=== PATIENT | male | born 1990 | race Caucasian/White ===

== ENCOUNTER 2016-04-06 17:28 | Inpatient (IN) | payer BC, OTHER ==
[~2016-04-06] VITALS: Ht 172.7 cm; Wt 95.0 kg
[2016-04-06] MEDS ORDERED: ALBUTEROL 0.083% NEBU SOLN 3 ML VIAL INH STA (17:53)
[2016-04-06] MEDS ORDERED: ALBUTEROL HFA 8 GM INHALER INH ONE (18:00)
--- NOTE | 2016-04-06 18:05 | EMERGENCY ROOM VISIT NOTE ---
History Report prepared by Dashawn: Shelia Villa Under the Supervision of: Dr. Jason Mazariegos M.D. First contact with patient: 17:35 Chief Complaint: MENTAL HEALTH EVALUATION Stated Complaint: DEPRESSION, SUICIDAL History of Present Illness The patient is a 26 year old male who presents to the Emergency Room with complaints of worsening suicidal ideations that were noticed DIVER PUMPER. Per the psych case management assistant, the patient's parents called police because they haven't heard from him in a couple days. The police went to the patient's house and it took him a while to answer the door, but he eventually let them in. Once the police were inside, they asked to see the patient's bedroom. They found a folded suicide note that was signed by the patient in his bedroom and then brought him into the ED. The psych case manger also reports that the patient took five Xanax last night in an attempt to not wake up. The patient did not want to talk about the note from his bedroom. He states that he has been depressed because school has been tough. The patient is studying international affairs at [employer]. He is working to get his Masters degree. The patient states that he has been experiencing a cough for the past 6 months that he has been unable to relieve with frequent uses of his inhaler. The patient states that he is eating and drinking normally. Source of History: patient, nursing staff (psych case management assistant) Onset: DIVER PUMPER Position: head Quality: other (suicidal ideations) Timing: worsening Associated Symptoms: + cough Review of Systems See HPI for pertinent positives & negatives. A total of 10 systems reviewed and were otherwise negative. Past Medical & Surgical Medical Problems: (1) No pertinent past medical history Family History No pertinent family history Social History Smoking Status: Never Smoker Marital Status: single Occupation Status: [employer] student Current/Historical Medications Scheduled Simvastatin (Zocor), 20 MG PO QPM Scheduled PRN Alprazolam (Xanax), 0.5 MG PO Q6H PRN for PRN Allergies Coded Allergies: Penicillins (Unverified Allergy, Unknown, DIARRHEA, 04/06/16) Physical Exam Vital Signs Date Time Temp Pulse Resp B/P Pulse Ox O2 Delivery O2 Flow Rate FiO2 04/06/16 20:50 74 20 124/70 98 04/06/16 17:30 36.5 72 133/78 96 Room Air Physical Exam GENERAL: Patient is a healthy-appearing well-nourished male HEAD: Normocephalic atraumatic EYES: Ocular movements intact pupils equal and react to light OROPHARYNX mucous membranes are moist no exudates present no erythema or edema present NECK: Supple no nuchal rigidity CHEST: Good equal expansion LUNGS: Clear and equal to auscultation CARDIAC: Normal S1 and S2 ABDOMEN: Soft nontender no guarding BACK: No CVA tenderness EXTREMITIES: Four superficial lacerations on left wrist that don't need suturing. Normal muscle strength in all groups no clubbing cyanosis or edema NEURO: Patient is following commands is answering questions appropriately. Alert and oriented x3 Cranial Nerves 2-12 grossly intact PSYCH: Denies being suicidal. Evasive with questioning. Medical Decision & Procedures ER Provider Diagnostic Interpretation: X-ray results as stated below per interpretation by me and the radiologist: CHEST ONE VIEW PORTABLE IMPRESSION: Poor inspiratory volumes with secondary crowding of the basilar lung markings. No acute infiltrate is appreciated. Electronically signed by: Leonid Grant M.D. 04/06/2016 6:07 PM Dictated Date/Time: 04/06/2016 6:07 PM Laboratory Results 04/06/16 18:00 Red Blood Count 5.93, Mean Corpuscular Volume 85.7, Mean Corpuscular Hemoglobin 31.2, Mean Corpuscular Hemoglobin Concent 36.4, Mean Platelet Volume 9.7, Neutrophils (%) (Auto) 65.4, Lymphocytes (%) (Auto) 23.4, Monocytes (%) (Auto) 9.3, Eosinophils (%) (Auto) 1.3, Basophils (%) (Auto) 0.4, Neutrophils # (Auto) 3.53, Lymphocytes # (Auto) 1.26, Monocytes # (Auto) 0.50, Eosinophils # (Auto) 0.07, Basophils # (Auto) 0.02 04/06/16 18:00 Test 04/06/16 17:50 04/06/16 17:58 04/06/16 18:00 Urine Color DK YELLOW Urine Appearance CLEAR (CLEAR) Urine pH 6.0 (4.5-7.5) Urine Specific Braxton 1.020 (1.000-1.030) Urine Protein NEG (NEG) Urine Glucose (UA) NEG (NEG) Urine Ketones NEG (NEG) Urine Occult Blood NEG (NEG) Urine Nitrite NEG (NEG) Urine Bilirubin NEG (NEG) Urine Urobilinogen NEG (NEG) Urine Leukocyte Esterase NEG (NEG) Urine Opiates Screen NEG (NEG) Urine Methadone, Qualitative NEG (NEG) Urine Barbiturates NEG (NEG) Urine Phencyclidine (PCP) Level NEG (NEG) Ur Amphetamine/Methamphetamine NEG (NEG) MDMA (Ecstasy) Screen NEG (NEG) Urine Benzodiazepines Screen POS (NEG) Urine Cocaine Metabolite NEG (NEG) Urine Marijuana (THC) NEG (NEG) Bedside Glucose 85 mg/dl (70-99) White Blood Count 5.39 K/uL (4.8-10.8) Red Blood Count 5.93 M/uL (4.7-6.1) Hemoglobin 18.5 g/dL (14.0-18.0) Hematocrit 50.8 % (42-52) Mean Corpuscular Volume 85.7 fL (80-100) Mean Corpuscular Hemoglobin 31.2 pg (25-34) Mean Corpuscular Hemoglobin Concent 36.4 g/dl (32-36) Platelet Count 277 K/uL (130-400) Mean Platelet Volume 9.7 fL (7.4-10.4) Neutrophils (%) (Auto) 65.4 % Lymphocytes (%) (Auto) 23.4 % Monocytes (%) (Auto) 9.3 % Eosinophils (%) (Auto) 1.3 % Basophils (%) (Auto) 0.4 % Neutrophils # (Auto) 3.53 K/uL (1.4-6.5) Lymphocytes # (Auto) 1.26 K/uL (1.2-3.4) Monocytes # (Auto) 0.50 K/uL (0.11-0.59) Eosinophils # (Auto) 0.07 K/uL (0-0.5) Basophils # (Auto) 0.02 K/uL (0-0.2) RDW Standard Deviation 38.8 fL (36.4-46.3) RDW Coefficient of Variation 12.4 % (11.5-14.5) Immature Granulocyte % (Auto) 0.2 % Immature Granulocyte # (Auto) 0.01 K/uL (0.00-0.02) Anion Gap 12.0 mmol/L (3-11) Est Creatinine Clear Calc Drug Dose 125.1 ml/min Estimated GFR () 119.9 Estimated GFR (Non- 103.4 BUN/Creatinine Ratio 11.1 (10-20) Calcium Level 9.7 mg/dl (8.5-10.1) Total Bilirubin 2.0 mg/dl (0.2-1) Direct Bilirubin 0.3 mg/dl (0-0.2) Aspartate Amino Transf (AST/SGOT) 22 U/L (15-37) Alanine Aminotransferase (ALT/SGPT) 48 U/L (12-78) Alkaline Phosphatase 79 U/L (45-117) Total Protein 9.1 gm/dl (6.4-8.2) Albumin 5.4 gm/dl (3.4-5.0) Globulin 3.7 gm/dl (2.5-4.0) Albumin/Globulin Ratio 1.5 (0.9-2) Thyroid Stimulating Hormone (TSH) 0.901 uIu/ml (0.300-4.500) Ethyl Alcohol mg/dL < 3.0 mg/dl (0-3) Labs reviewed by ED physician. Medications Administered Medications (Trade) Dose Ordered Sig/Devon Route Start Time Stop Time Status Last Admin Dose Admin Albuterol (Ventolin Hfa Inhaler) 2 puffs NOW ONCE INH 04/06/16 18:00 04/06/16 18:02 DC 04/06/16 18:11 2 PUFFS Albuterol Sulfate (Ventolin 0.083% 2.5MG/3ML Neb) 2.5 mg NOW STAT INH 04/06/16 17:53 04/06/16 18:01 DC 04/06/16 18:11 2.5 MG ED Course 1740: Past medical records reviewed. The patient was evaluated in room A8. A complete history and physical examination was performed. 1750: The psych case management assistant informed me that the patient's wrists were dripping blood when he walked out of the bathroom. 1752: I reassessed the patient. He had four superficial lacerations on his left wrist that did not require suturing. Ordered Albuterol Sulfate 2.5 mg INH 1800: Ordered Albuterol 2 puffs INH 1840: I informed the psych case management assistant that the patient is medically clear at this time. 1917: The psych case management assistant informed me that [address] [place] [address] is going to come down and evaluate the patient. 2035: [address] [place] [address] has accepted the patient. He will go there for further management. Medical Decision Differential diagnosis: Etiologies such as mood disorder, infection, hypoglycemia, electrolyte abnormalities, cardiac sources, intracerebral event, toxicologic, neurologic, as well as others were entertained. This is a 26-year-old male who presents emergency department after running a suicidal note and in attempt to overdose on his medication. Upon arrival to the emergency department the patient does admit to doing this. He was medically cleared by me. I did discuss the case with 3 S. who agreed to admit the patient. Patient willingly signed a 201. Impression Primary Impression: Suicidal ideation Scribe Attestation The scribe's documentation has been prepared under my direction and personally reviewed by me in its entirety. I confirm that the note above accurately reflects all work, treatment, procedures, and medical decision making performed by me. Departure Information Dispostion [facility] ([address] [place] [address]) Patient Instructions [facility]
--- NOTE | 2016-04-06 18:09 | DIAGNOSTIC IMAGING REPORT ---
CHEST ONE VIEW PORTABLE CLINICAL HISTORY: Pt c/o SOB dyspnea COMPARISON STUDY: No previous studies for comparison. FINDINGS: Poor inspiratory volumes. Crowding of the basal lung markings. No focal infiltrate. IMPRESSION: Poor inspiratory volumes with secondary crowding of the basilar lung markings. No acute infiltrate is appreciated. Electronically signed by: Leonid Grant M.D. 04/06/2016 6:07 PM Dictated Date/Time: 04/06/2016 6:07 PM
[2016-04-06 18:17] LABS: BASO % 0.4 %; BASO ABS # 0.02 K/uL (0-0.2); COMPLETE YES; EOS % 1.3 %; HEMATOCRIT 50.8 % (42-52); IG% 0.2 %; LYMPH % 23.4 %; LYMPH ABS # 1.26 K/uL (1.2-3.4); MEAN CELL VOLUME 85.7 fL (80-100); MEAN CORPUSCULAR HEMOGLOBIN 31.2 pg (25-34); MEAN CORPUSCULAR HGB CONC 36.4 g/dl (32-36); MEAN PLATELET VOLUME 9.7 fL (7.4-10.4); MONO % 9.3 %; NEUT % 65.4 %; PLATELET COUNT 277 K/uL (130-400); RED BLOOD COUNT 5.93 M/uL (4.7-6.1); WHITE BLOOD COUNT 5.39 K/uL (4.8-10.8)
[2016-04-06 18:18] LABS: URINE APPEARANCE CLEAR (CLEAR); URINE BILIRUBIN NEG (NEG); URINE COLOR DK YELLOW; URINE NITRITE NEG (NEG); UROBILINOGEN NEG (NEG)
[2016-04-06] MEDS ORDERED: ALPR-411 PO (18:18)
[2016-04-06] MEDS ORDERED: SIMV20TA2 PO (18:18)
[2016-04-06 18:21] LABS: MANUAL MICROSCOPIC REQUIRED? NO; REVIEW REQ? NO
[2016-04-06 18:36] LABS: BUN/CREATININE RATIO 11.1 (10-20); CALCIUM 9.7 mg/dl (8.5-10.1); POTASSIUM 3.6 mmol/L (3.5-5.1)
[2016-04-06 18:46] LABS: ALB/GLOB RATIO 1.5 (0.9-2); THYROID STIMULATING HORMONE 0.901 uIu/ml (0.300-4.500)
[2016-04-06 18:51] LABS: BENZODIAZEPINE, URINE POS (NEG); COCAINE,URINE NEG (NEG); PHENCYCLIDINE, URINE NEG (NEG)
[2016-04-06 20:50] VITALS: O2SAT 98
[2016-04-06] MEDS ORDERED: NURSING VERBAL MED ORDER ONE ×2 (21:00→21:45)
[2016-04-06 21:19] VITALS: BP 124/70; PULSE 76; TEMP 36.5; Ht 172.7 cm; Wt 95.0 kg
[2016-04-06] MEDS ORDERED: BISMUTH SUBSALICYLATE PER ML OMNICELL CHARGE PO PRN (21:30)
[2016-04-06] MEDS ORDERED: ACETAMINOPHEN 325 MG TAB PO PRN (21:30)
[2016-04-06] MEDS ORDERED: hydrOXYzine HCL 25 MG TAB PO PRN ×2 (21:30)
[2016-04-06] MEDS ORDERED: MAGNESIUM HYDROXIDE SUSP 30 ML UDC PO PRN (21:30)
[2016-04-06] MEDS ORDERED: SODIUM CHLORIDE 0.65% NA SOLN 45 ML (OCEAN) PRN (21:30)
[2016-04-06] MEDS ORDERED: ALUMINUM/MAGNESIUM SUSP 30 ML UDC PO PRN (21:30)
[2016-04-07 06:57] VITALS: BP_SYST 113; BP_SYST 119; BP_DIAS 77; BP_DIAS 79; PULSE 64; PULSE 84; TEMP 36.5
--- NOTE | 2016-04-07 12:13 | Psychiatric History & Physical ---
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 . Edenilson Munguia was admitted on a 201 voluntary commitment. Patient is admitted from the [facility] ER . The patient was brought to the ED by the police after family from [place] called asking for a welfare check after they had not heard form him in several days. He was sedated in his apartment and when police searched his home he had a suicide note folded in his room and superficial lacerations to his left forearm and stated he had taken xanax and these were a part of a suicide attempt. Information provided by the patient is considered to be reliable . Chief Complaint "I don't want to , I stopped cutting myself and went to sleep". History of Present Illness The patient reports no formal psychiatric history. He in retrospect admits to a year of depressive sx at the age of 15yo when he moved with his family from [facility] to [facility]. In retrospect he hated moveing from his friends and family at that age and had low interest, low energy and low mood feeling poorly for the better part of a year despite doing well academically then. He stayed in [place] from 15yo to 18yo and from 16yo to 18yo reported loving [place] and recovering from that low "it was just such a hard age to move." He then returned to [place] to attend college, his family returned 6months after him. He denies depression since then. He does admit to a history of anxiety about school work but denies overt s/ sx of GIANA. 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 He was given alprazolam prn to take before presentations. He states at times in the days to week prior to a presentation he will feel nauseated and vomit with worry, and at times waken anxious wtih nausea. He was given prn zofran by his [facility] as well. He states he moved from [place] to [place] in Fall 2015 to start his Masters and had to give presentations often noting "thirsty 10min presentations, and 3 1 hour presentations" last semester and that helped him feel less anxious and less anticipation only haven taken. However this semester he has an upcoming presentation for 90min on a topic he is not readily familiar with "climate change as it pertains to national security " He states about 2 weeks ago he began to have worry and nausea. This seemed to get worse over time vomitted 2 times in the last 2 weeks and took zofran to schaeffer off nausea 2-3 times during this time. He reported ongoing intact sleep and denied s/sx of depression or safety concerns. About a week prior to admission he was out attempting to get his snow shovel out of his hatchback and the hatchback fell on his head due to the weight of the snow and he blacked out for unclear amount of time waking with his torso in his car the saul resting on his body and legs/feet on the ground outside his car. Since then he has had a PARRA, severe at an 8/10 for 3days but ongoing PARRA at a 3/10 daily since, flashing lights, dizzyiness with beding over or valsalva and feeling poor concentration and light sensitivity. As the week went on he became worried and tried to identify a local doctor to see but did not. In the days prior to he stated he did not answer his phone as he keeps it put away while doing school work, and continued to try to do his course work and prepare for his presentation becoming more and more anxious. He was sleeping 7-8h/night rare power nap once a week. He beleives his parents may have asked for a welfare check as the family knew someone who went to sleep after a concussion and in their sleep, and due to his lack of contact "I think they were woried" He denies having had suicidal thoughts prior to 04/06/16. He states he was feeling overwhelmed and historically will go for a walk "and that has helped int he past " but due to the cold weather he went for a drive. He returned to his apartment and did not feel better and started to have thoughts that if he cannot do this presentation without "freaking out" that he would fail at his future career and these thoughts spiraled into suicidal thinking. He had taken two 0.5mg xanax for anxiety (nursing report to this provider was 7 of his 0.5mg pills) and it is unclear the timing of taking the xanax and these thoughts. At some point he prepared a suicide letter for his family. He cut 4 times on his left wrist and states "I freaked out and could not do it, I told myself this is stupid." He then states he fell asleep on his bed and woke to the police knocking on his door. Today on interview patient states he is anxious about his presentation but had cancelled it but now would like to reinstate it and complete it on Saturday as planned "it is 20% of my grade." Further he acknowledges he is overly anxious about presentations but maintains that he is not depressed or otherwise generally anxious beyond what is "reasonable." He denies current thoughts to harm himself or others. He states "I stopped cutting and went to sleep after I realized I did not want to ." He has many questions and concerns about future ability to obtain security clearance and treatments that do not involved prescribed medications for the same reason. On Psych ROS, he denies present or past s/sx of psychosis, mood instabiltiy/ bipolar marixa or mixed states, impulse control disorders, SIB, SA, childhood dirsuptive behavioral disorders, eating disorders, PTSD or trauam, nor OCD. Past Psychiatric History Current OP Treatment: no current treatment (PCM prescribed xanax) Prior OP Treatment: no prior treatment (1) Anxiety Past Medical/Surgical History History of Obesity: Yes History of HTN: No History of Diabetes: No History of Heart Disease: No History of Dyslipidemia: Yes History of Concussion/Seizure: Yes (03/30/16 with >1 week of post concussive symptoms) Problem List: (1) H/O hernia repair (2) H/O brain surgery Allergies Allergies: Coded Allergies: Penicillins (Unverified Allergy, Unknown, DIARRHEA, 04/06/16) Home Medications Scheduled Simvastatin (Zocor), 20 MG PO QPM Scheduled PRN Alprazolam (Xanax), 0.5 MG PO Q6H PRN for PRN Family History History of Obesity: Yes History of HTN: Yes (mother, father) History of Diabetes: Yes (sister, aunts both sides) History of Heart Disease: Yes History of Dyslipidemia: Yes (grandmother, sister, father) Alcohol Use Alcohol Use In Past 12 Months: Yes drinks 2-3 times a year when with friends, last drink during school break while in [place] one night had 3 drinks with friends, denies h/o black outs, CAGE questionairre negative, no legal concerns Substance History Substance Use Past 12 Months: Hx of Inhalent Use: No Hx of Organic Substance Use: No Hx of Illegal/Street Drug Use: No Hx of Over the Counter Med Use: No Hx of Prescription Med Use: Yes (7 0.5 pills xanax in OD ) remote history of MJ at 15yo, last use one time at 21st birthday, no other illicit substances Personal History Born in: [facility] Parental Status: Development: brain surgery for fluid on the brain as infanct, denies developmental delay Education: advanced degree (Master's program at [employer] started Fall 2015, 2 years , International relations; excelled acadmically throughout prior schooling,no disciplinary concerns ) Relationship History: never Spiritual Affiliation: atheist Legal History: none Abuse History: none Review of Systems Respiratory: reports: cough (>6months given inhaler only partially helpful) Neurologic: reports: dizziness, headache, other (poor concentration and seeing light flashes and light sensitivity since 03/30/16 concussion) Examination Physical Examination See exam by Dr Delilah PICKARD MD on 04/07/16 reveiwed by this provider Vital Signs Vital Signs Past 12 Hours Date Time Temp Pulse Resp B/P Pulse Ox O2 Delivery O2 Flow Rate FiO2 04/07/16 06:57 36.5 64 16 119/79 84 113/77 Laboratory Results Last 24 Hours Test 04/06/16 17:50 04/06/16 17:58 04/06/16 18:00 Urine Color DK YELLOW Urine Appearance CLEAR Urine pH 6.0 Urine Specific Hobbs 1.020 Urine Protein NEG Urine Glucose (UA) NEG Urine Ketones NEG Urine Occult Blood NEG Urine Nitrite NEG Urine Bilirubin NEG Urine Urobilinogen NEG Urine Leukocyte Esterase NEG Urine Opiates Screen NEG Urine Methadone, Qualitative NEG Urine Barbiturates NEG Urine Phencyclidine (PCP) Level NEG Ur Amphetamine/Methamphetamine NEG MDMA (Ecstasy) Screen NEG Urine Benzodiazepines Screen POS Urine Cocaine Metabolite NEG Urine Marijuana (THC) NEG Bedside Glucose 85 mg/dl White Blood Count 5.39 K/uL Red Blood Count 5.93 M/uL Hemoglobin 18.5 g/dL Hematocrit 50.8 % Mean Corpuscular Volume 85.7 fL Mean Corpuscular Hemoglobin 31.2 pg Mean Corpuscular Hemoglobin Concent 36.4 g/dl Platelet Count 277 K/uL Mean Platelet Volume 9.7 fL Neutrophils (%) (Auto) 65.4 % Lymphocytes (%) (Auto) 23.4 % Monocytes (%) (Auto) 9.3 % Eosinophils (%) (Auto) 1.3 % Basophils (%) (Auto) 0.4 % Neutrophils # (Auto) 3.53 K/uL Lymphocytes # (Auto) 1.26 K/uL Monocytes # (Auto) 0.50 K/uL Eosinophils # (Auto) 0.07 K/uL Basophils # (Auto) 0.02 K/uL RDW Standard Deviation 38.8 fL RDW Coefficient of Variation 12.4 % Immature Granulocyte % (Auto) 0.2 % Immature Granulocyte # (Auto) 0.01 K/uL Sodium Level 141 mmol/L Potassium Level 3.6 mmol/L Chloride Level 104 mmol/L Carbon Dioxide Level 25 mmol/L Anion Gap 12.0 mmol/L Blood Urea Nitrogen 11 mg/dl Creatinine 1.00 mg/dl Est Creatinine Clear Calc Drug Dose 125.1 ml/min Estimated GFR () 119.9 Estimated GFR (Non- 103.4 BUN/Creatinine Ratio 11.1 Random Glucose 80 mg/dl Calcium Level 9.7 mg/dl Total Bilirubin 2.0 mg/dl Direct Bilirubin 0.3 mg/dl Aspartate Amino Transf (AST/SGOT) 22 U/L Alanine Aminotransferase (ALT/SGPT) 48 U/L Alkaline Phosphatase 79 U/L Total Protein 9.1 gm/dl Albumin 5.4 gm/dl Globulin 3.7 gm/dl Albumin/Globulin Ratio 1.5 Thyroid Stimulating Hormone (TSH) 0.901 uIu/ml Ethyl Alcohol mg/dL < 3.0 mg/dl Mental Examination During interview pt is: alert and oriented, cooperative Appearance: appropriately dressed, appropriately groomed Eye contact is: good Motor behavior is: steady gait & station Speech: normal in rate, rhythm & volume Affect: anxious (shaking his leg in the interview, asking significant questions regarding all aspects of diganosis, treatment and implications) Mood is: anxious Thought process: goal directed, linear, logical, clear, coherent Suicidal thought are: denied Homicidal thoughts are: denied Hallucinations: denies auditory, denies visual Cognition: memory grossly intact (despite c/o poor concentration he attends well and attention is intact throughout the 60min+ interview) Intelligence estimated to be: average Insight: fair Judgement: fair Impression / Recommendations Impression Patient is a 26yo SWM with a history of depression remitted as a teen likely due to situational stressors, but more consistently a highly concientious personality and anxiety surrounding academic performance. He has notable anxiety with presentations seeming to persevere last semester with high level of obligated exposure to presentations and prn xanax and prn zofran to manage. He denies genetic pre-disposition to anxiety or mood concerns. Labs do not overtly indicate GMC causing anxiety. However he does have slight increas of HCT and cannot discern if this is a spurious result, vs. sx of poor oxygenation with his cough/asthma vs. occult SILVER. Will repeat CBC. He also had a concussion 1 week ago with post-concussion symptoms but no focal findings on neuro exam. He is anxious given association with a child who s/p head injury many years ago. FUrther he had worsening concentration, dizziness, PARRA and scintilla in this last week likely making it harder to cope with anxiety and school work, further likely worsened by the anti-cognitive burden of prn xanax. He states his suicidal gesture was impulsive and aborted mid-attempt. Will need to gather collateral history on his disposition prior to the attempt from mother who is visiting, and observe his behavior. Psychologically he is geared to please others and minimize his blunders and need to rule out his desire to minimize to leave the unit to harm himself, OR to simply minimize time away from academics to keep anyone from knowing. He does listen atentively to provider regarding his clearance and that he will need to account for this admission and subsequent care but that provided he takes a proactive role in working on recovery this is not a seymour pin to losing any opportunity for clearance. He affirms understanding. Furthermore he would like to minimize use of medications. Discussed for completeness sake propranolol prn, buspar regulalry or SSRI lexapro regularly to assist with anxiety. At a minimum recommend PhD or PsyD level of therapist after discharge to help him with CBT for performance but also his rigid high perfectionistic tendencies that fuel anxiety but also to have the doctoral level of training to complete and future top secret clearance forms on behalf of patient Recommend he consider [employer] [facility] on campus as well to fortify behavioral training. [facility] safety planning, relaxation/anxiety management skills and observe behavior, while gathering more collateral. Will not start medication at this time. Inventory Assets Strengths: Good rapport with provider seeming to be transparent supportive parents/family future oriented Needs: aftercare support in local area skills to help with coping with anxiety Risk Factors Assessment Male: Yes : Yes /single/: Yes Access to guns: No Substance use disorders: No Previous attempt: No Previous attempt;highly lethal: No Family history of suicide: No Previous psychiatric stay: No Hopelessness: No Smoker: No Protective Factors Assessment Temple beliefs: No : No Responsible for young children: No Employed: No Stable relationships: Yes Supportive family: Yes Recommendations (1) Suicidal ideation - [facility] admission for 72hours of observation to assure behavioral and collateral history match his report as his attempt and not alerting anyone of recent SI and his behavior of TI and cutting are concerning and he has reason to minimize his behaviors and ongoing symptoms - this is least restrictive and most appropriate setting for care at this time - safety planning - set up aftercare (2) Anxiety - discussed therapy medication (propranolo, buspar or SSRI), or combination treatment - he declines medications - he is agreeable to behavioral therapy on unit, schaeffer milieu - he is agreed able to referral to PhD or PsyD at time of discharge for CBT - recommend considering [facility] for presentation anxiety (3) Post concussion syndrome provider to read guidelines for assessment and treatment to r/o if imaging is needed given non-focal exam further will attempt to provide literature for patient stop benzo as it can worsen cognition and recall (4) Cough due to bronchospasm >6months refer to a new PCM at time of discharge for further assessment continue ventolin inhaler while inpatient repeat CBC given elevated HCT at ER (5) Hyperlipidemia continue zocor CPT Code Initial Hospital Care: 28330
[2016-04-07] MEDS: ALBUTEROL HFA 8 GM INHALER INH PRN (13:02)
--- NOTE | 2016-04-07 15:41 | DIAGNOSTIC IMAGING REPORT ---
HEAD CT NONCONTRAST CT DOSE: 614.27 mGy.cm HISTORY: concussion w/ worsening headaches and 2 episodes of vomiting this wee TECHNIQUE: Multiaxial CT images of the head were performed without the use of intravenous contrast. Automated exposure control was utilized for this study. Comparison: None. Findings: The paranasal sinuses and mastoid air cells are clear. No acute fractures within the calvarium or skull base. Focal thinning within the left parietal bone on image 25. This could be due to an old injury. The ventricles and sulci are within normal limits. There is no mass, hematoma, midline shift, or acute infarct. Impression: No acute intracranial abnormality. Electronically signed by: Matias Arguello M.D. 04/07/2016 3:40 PM Dictated Date/Time: 04/07/2016 3:31 PM
[2016-04-08 06:58] VITALS: BP_SYST 117; BP_SYST 120; BP_DIAS 73; BP_DIAS 74; PULSE 55; PULSE 66; TEMP 36.6
[2016-04-08] MEDS: ALBUTEROL HFA 8 GM INHALER INH PRN ×2 (09:23→14:49)
--- NOTE | 2016-04-08 15:41 | Psychiatric Progress Notes ---
Progress Note Date of Service Apr 08, 2016. 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 . Edenilson Munguia was admitted on a 201 voluntary commitment on 04/06/16 from the [facility] ER . The patient was brought to the ED by the police after family from [place] called asking for a welfare check after they had not heard form him in several days. He ansered the door in a glassy-eyed groggy manner, and when police searched his home he had a suicide note folded in his room and superficial lacerations to his left forearm and stated he had taken xanax and these were a part of a suicide attempt. Chief Complaint "I'm feeling good". Subjective Patient was seen & assessed interval progress reviewed with Treatment Team He slept 5+ hours overnight. Head CT was normal He reports his mood is a 10/10 and anxiety is low at a 2/10, but then he and ( he has convinced his mother) that he will get behind if not able to work on his school work and will be penalized in his program, but also defers having our unit work through STud[employer] affairs to get him some delayed due dates due to "medical concern." He did have a concussion and has less PARRA today , no further light flashes today , some dizzyness with bending over and some mild ongoing light sensitivity. He is somewhat persistent in his petition to work on his lap top despite being told yesterday that he could not, but when provider shared rationale of staying treatment focussed, unit boundaries for the milieu and due to there is not staffing for him during one-to-one computer work, that the [employer] computer would not help him anyway he is able to reiterate and say he understands. Challenged him to work on the anxiety that this brings both in contingency planning as well as beginning to work on ways to use mindfulness. He is future oriented and sees his suicidal attempt as a "stupid mistake" and continues to impress upon the provider "that I stopped cutting and went to sleep " meaning he abandon his own attempt. He denies irritabilty or lability. He denies physical concerns other than mentioned above. Sleep Information Total Hours of Sleep: 4.50 Meal Information Percent of Breakfast Consumed: 100 Percent of Lunch Consumed: 75 Percent of Dinner Consumed: 25 Mental Status Exam During interview pt is: alert and oriented, cooperative Appearance: appropriately dressed, appropriately groomed Eye contact is: good Motor behavior is: steady gait & station Speech: normal in rate, rhythm & volume Affect: anxious (significant questions and clarifications and reinforcements requested by the patient and processes and plans) Mood is: anxious Thought process: goal directed, linear, logical, clear, coherent Suicidal thought are: denied Homicidal thoughts are: denied Hallucinations: denies auditory, denies visual Cognition: memory grossly intact (intact) Intelligence estimated to be: average Insight: fair Judgement: fair Impression Patient is a 26yo SWM with a history of depression remitted as a teen likely due to situational stressors, but more consistently a highly concientious personality and anxiety surrounding academic performance. He has notable anxiety with presentations seeming to persevere last semester with high level of obligated exposure to presentations and prn xanax and prn zofran to manage. He has overt GIANA with tendency to worry on the unit and request and petition to solve things a certain way. Atempted to challenge him with this today and encourage him toward his therapy to learn ways to understand and manage these traits. Plan (1) [facility] to assure behavioral and collateral history match his report as his attempt and not alerting anyone of recent SI and his behavior of TI and cutting are concerning and he has reason to minimize his behaviors and ongoing symptoms - this is least restrictive and most appropriate setting for care at this time - safety planning - set up aftercare 04/08 denying SI, and future oriented, need to set up aftercare and liaison with university to mitigate further risk prior to discharge (2) Anxiety 04/07/16 - discussed therapy medication (propranolol, buspar or SSRI), or combination treatment - he declines medications - he is agreeable to behavioral therapy on unit, schaeffer milieu - he is agreed able to referral to PhD or PsyD at time of discharge for CBT - recommend considering [facility] for presentation anxiety 04/08/16 continue plan as above, challenged patient to mindfulnes as he is anxious about solving his concerns and encouraged him to practice while trying to empathize with his concerns (3) Post concussion syndrome 04/07/16 -provider to read guidelines for assessment and treatment to r/o if imaging is needed given non-focal exam further will attempt to provide literature for patient stop benzo as it can worsen cognition and recall 04/08/16 - head CT WNL, encouraged patient that time and brain rest are important he is clear he does not feel he has time to spare given his high academic load. - recommend establish appt with PCM to help him monitor post-concussive symptoms (4) Cough due to bronchospasm 04/07 and 04/08/16 >6months refer to a new PCM at time of discharge for further assessment continue ventolin inhaler while inpatient recommend f/u with PCM regarding elevated HCT at ER as it may be due to pulmonary related concern (5) Hyperlipidemia continue zocor Discharge / Aftercare Planning Primary Care Physician: Name: none Psychiatrist: Name: none Rear Admiral: Name: none Visit Code E&M Code: 10234 Inventory Assets Strengths: Good rapport with provider seeming to be transparent supportive parents/family future oriented Needs: aftercare support in local area skills to help with coping with anxiety Risk Factors Assessment Male: Yes : Yes /single/: Yes Substance use disorders: No Previous attempt: No Previous attempt;highly lethal: No Family history of suicide: No Previous psychiatric stay: No Hopelessness: No Smoker: No Protective Factors Assessment Voodoo beliefs: No : No Responsible for young children: No Employed: No Stable relationships: Yes Supportive family: Yes Data Vital Signs Last 24 Hrs: Date Time Temp Pulse Resp B/P Pulse Ox O2 Delivery O2 Flow Rate FiO2 04/08/16 06:58 36.6 55 16 117/74 66 120/73 Meds Administered Last 24 Hrs: Meds Administered (Past 24Hrs) Medications (Trade) Dose Ordered Sig/Devon Route Start Time Stop Time Status Last Admin Dose Admin Albuterol (Ventolin Hfa Inhaler) 2 puffs NOW ONCE INH 04/06/16 18:00 04/06/16 18:02 DC 04/06/16 18:11 2 PUFFS Albuterol Sulfate (Ventolin 0.083% 2.5MG/3ML Neb) 2.5 mg NOW STAT INH 04/06/16 17:53 04/06/16 18:01 DC 04/06/16 18:11 2.5 MG Albuterol (Ventolin Hfa Inhaler) 2 puffs Q4H PRN INH 04/06/16 22:00 05/06/16 21:59 04/08/16 14:49 2 PUFFS
[2016-04-09 06:54] VITALS: BP_SYST 127; BP_SYST 129; BP_DIAS 75; BP_DIAS 77; PULSE 70; PULSE 74; TEMP 36.7
[2016-04-09 08:24] LABS: HYDROXYETHYLFLURAZEPAM CONF NEGATIVE NG/ML (CUTOFF=50); HYDROXYMIDAZOLAM NEGATIVE NG/ML (CUTOFF=50); HYDROXYTRIAZOLAM CONF NEGATIVE NG/ML (CUTOFF=50); TEMAZEPAM CONF NEGATIVE NG/ML (CUTOFF=50)
[2016-04-09] MEDS: ALBUTEROL HFA 8 GM INHALER INH PRN (08:41)
--- NOTE | 2016-04-09 10:02 | Discharge Instructions ---
Discharge Information Report Includes Report will include the: Discharge Instructions & Summary Admission Admission Date / Time: Apr 06, 2016 at 20:58 Reason for Admission: Major Depressive Disorder Discharge Discharge Diagnosis / Problem: Generalized anxiety disorder, Xanax overdose, self inflicted lacerations. Condition at Discharge: Fair Discharge Goals Goal(s): Improve function, Improve disease control, Learn about illness, Therapeutic intervention Activity Recommendations Activity Limitations: per Instructions/Follow-up section . Instructions / Follow-Up Instructions / Follow-Up . SPECIAL CARE INSTRUCTIONS: 1. Follow through with your scheduled aftercare appointments. If unable to keep an appointment, please call to reschedule. 2. Take your medication only as prescribed. You are not on psychotropic medications. Your Xanax was stopped here due to overdose and risk of harm. If depressive or anxiety symptoms worsen, medications are an option. You were offered follow up with an outpatient psychiatrist, but declined. You may schedule an outpatient psychiatric appointment if you decide to pursue medication as part of your treatment. 3. Utilize new healthy coping skills, anger management skills, and stress management skills learned during your hospitalization. Journal feelings and process them with a support person. Identify stressors or situations that may result in relapse, deterioration or inappropriate behaviors and develop a plan to deal with those issues. 4. If your coping skills are ineffective and you are in crisis, contact your outpatient providers for direction. If unable to reach your providers, please call the CAN HELP LINE AT or go to the closest Emergency Room. 5. Avoid alcohol and un-prescribed drugs. 6. You have been provided with the Mental Health Advance Directives Pamphlet for your review. AFTERCARE APPOINTMENTS: * Please call your insurance company prior to your scheduled appointment to confirm your aftercare providers are covered. Take your insurance information to your appointments. . Discharge / Aftercare Planning Primary Care Physician: Name: none Psychiatrist: Name: none Work Adjustment Instructor: Name: none . Follow-Up Care Plan for Follow-Up Care: Outpatient therapy, as above. Current Hospital Diet Patient's current hospital diet: Regular Diet Discharge Diet Recommended Diet: Regular Diet Procedures Procedures Performed: No Pending Studies Pending Studies at Discharge: No Medical Emergencies . Who to Call and When: Medical Emergencies: For questions or emergencies related to your hospital stay, please contact the Inpatient Behavioral Health Unit at [phone]. A global marketing coordinator is on-call 10/09 for the Behavioral Health Unit for emergencies At any time you feel your situation is an emergency, you may also call 911 immediately. . Non-Emergent Contact Non-Emergency issues call your: Primary Care Provider, Therapist Advance Directives Existing Advance Directive: No Do You Have an Existing Mental: No Existing Living Will: No Existing Power of Loss Prevention Supervisor: No Advance Directives Info Given: To Pt/S.O. Discharge Summary Admission HPI Per the Admitting provider: The patient reports no formal psychiatric history. He in retrospect admits to a year of depressive sx at the age of 15yo when he moved with his family from [facility] to [facility]. In retrospect he hated moving from his friends and family at that age and had low interest, low energy and low mood feeling poorly for the better part of a year despite doing well academically then. He stayed in [place] from 15yo to 18yo and from 16yo to 18yo reported loving [place] and recovering from that low "it was just such a hard age to move." He then returned to [place] to attend college, his family returned 6months after him. He denies depression since then. He does admit to a history of anxiety about school work but denies overt s/ sx of GIANA. 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 He was given alprazolam prn to take before presentations. He states at times in the days to week prior to a presentation he will feel nauseated and vomit with worry, and at times waken anxious wtih nausea. He was given prn zofran by his PCM as well. 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 However this semester he has an upcoming presentation for 90min on a topic he is not readily familiar with "climate change as it pertains to national security " He states about 2 weeks ago he began to have worry and nausea. This seemed to get worse over time vomitted 2 times in the last 2 weeks and took zofran to schaeffer off nausea 2-3 times during this time. He reported ongoing intact sleep and denied s/sx of depression or safety concerns. About a week prior to admission he was out attempting to get his snow shovel out of his hatchback and the hatchback fell on his head due to the weight of the snow and he blacked out for unclear amount of time waking with his torso in his car the saul resting on his body and legs/feet on the ground outside his car. Since then he has had a PARRA, severe at an 8/10 for 3days but ongoing PARRA at a 3/10 daily since, flashing lights, dizzyiness with beding over or valsalva and feeling poor concentration and light sensitivity. As the week went on he became worried and tried to identify a local doctor to see but did not. In the days prior to he stated he did not answer his phone as he keeps it put away while doing school work, and continued to try to do his course work and prepare for his presentation becoming more and more anxious. He was sleeping 7-8h/night rare power nap once a week. He beleives his parents may have asked for a welfare check as the family knew someone who went to sleep after a concussion and in their sleep, and due to his lack of contact "I think they were woried" He denies having had suicidal thoughts prior to 04/06/16. He states he was feeling overwhelmed and historically will go for a walk "and that has helped int he past " but due to the cold weather he went for a drive. He returned to his apartment and did not feel better and started to have thoughts that if he cannot do this presentation without "freaking out" that he would fail at his future career and these thoughts spiraled into suicidal thinking. He had taken two 0.5mg xanax for anxiety (nursing report to this provider was 7 of his 0.5mg pills) and it is unclear the timing of taking the xanax and these thoughts. At some point he prepared a suicide letter for his family. He cut 4 times on his left wrist and states "I freaked out and could not do it, I told myself this is stupid." He then states he fell asleep on his bed and woke to the police knocking on his door. Today on interview patient states he is anxious about his presentation but had cancelled it but now would like to reinstate it and complete it on Saturday as planned "it is 20% of my grade." Further he acknowledges he is overly anxious about presentations but maintains that he is not depressed or otherwise generally anxious beyond what is "reasonable." He denies current thoughts to harm himself or others. He states "I stopped cutting and went to sleep after I realized I did not want to ." He has many questions and concerns about future ability to obtain security clearance and treatments that do not involved prescribed medications for the same reason. On Psych ROS, he denies present or past s/sx of psychosis, mood instabiltiy/ bipolar marixa or mixed states, impulse control disorders, SIB, SA, childhood dirsuptive behavioral disorders, eating disorders, PTSD or trauam, nor OCD. Admission Exam Per the Admitting provider: Please see admission H&P. Hospital Course (1) Suicidal ideation 04/07 - inpatient admission for 72hours of observation to assure behavioral and collateral history match his report as his attempt and not alerting anyone of recent SI and his behavior of TI and cutting are concerning and he has reason to minimize his behaviors and ongoing symptoms - this is least restrictive and most appropriate setting for care at this time - safety planning - set up aftercare 04/08 - Denying SI, and future oriented. Need to set up aftercare and liaison with [facility] to mitigate further risk prior to discharge. 04/09 - continues to deny SI, minimizes suicide attempt, and requesting to leave. - family meeting held with mother who is here from [place] and supports discharge , denies concerns for his safety, and will be staying through the end of the week. - patient continues to decline medications for anxiety, and is agreeing to f/ u with an outpatient therapist, but not psychiatrist. - Xanax stopped due to overdose and risk of harm as well as risk of worsening symptoms of post concussive syndrome. - Self inflicted lacerations examined and are healing well. 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 - Able to review healthy coping skills and safety plan. (2) Anxiety 04/07/16 - discussed therapy medication (propranolol, buspar or SSRI), or combination treatment - he declines medications - he is agreeable to behavioral therapy on unit, schaeffer milieu - he is agreed able to referral to PhD or PsyD at time of discharge for CBT - recommend considering [place] [employer] for presentation anxiety 04/08/16 - continue plan as above, challenged patient to mindfulness as he is anxious about solving his concerns and encouraged him to practice while trying to empathize with his concerns 04/09/16 - again reviewed options for medications as above, which he continues to decline. - willing to seek outpatient psychiatric follow up if symptoms worsen or he changes his mind about willingness for medications - willing for therapy referral (3) Post concussion syndrome 04/07/16 -provider to read guidelines for assessment and treatment to r/o if imaging is needed given non-focal exam further will attempt to provide literature for patient stop benzo as it can worsen cognition and recall 04/08/16 - head CT WNL, encouraged patient that time and brain rest are important he is clear he does not feel he has time to spare given his high academic load. - recommend establish appt with PCM to help him monitor post-concussive symptoms 04/09/16 - post concussive symptoms have resolved - reviewed recommendation to follow up with PCP ([facility]) for this as well as other medical concerns (4) Cough due to bronchospasm 04/07 and 04/08/16 >6months refer to a new PCM ([facility]) at time of discharge for further assessment continue Ventolin inhaler while inpatient recommend f/u with PCM regarding elevated Hgb as it may be due to pulmonary related concern (5) Hyperlipidemia continue zocor Risk Factors Assessment Male: Yes : Yes /single/: Yes Access to guns: No Mental Health Diagnoses: Yes Substance use disorders: No Previous attempt: No Previous attempt;highly lethal: No Family history of suicide: No Previous psychiatric stay: No Hopelessness: No Smoker: No Protective Factors Assessment Faith beliefs: No : No Responsible for young children: No Employed: No Stable relationships: Yes Supportive family: Yes Absence of risk factors above: Yes (patient has a risk factors of a history of depression, recent severe anxiety symptoms, and a suicide attempt by overdose on Xanax and cutting of left wrist. He did leave a suicide note, and did not tell anybody about the attempt or seek help. He has no outpatient providers. While here, he has participated in some groups and therapy, has been able to work on healthy ways to cope, and has completed his discharge safety plan. He is consistently denied suicidal thoughts here, is making plans for the future, and has good support from his mother, who has been visiting frequently. He is willing to follow-up with an outpatient therapist, although he has declined medications and psychiatric follow-up. He is completing his ADLs independently , and is sleeping and eating well. He is having a family meeting with his mother, who denies concerns for his safety and is in support of discharge today. He is requesting discharge, and as he is no longer at acute risk of harm to himself, can be managed as an outpatient at this time.) Day of Discharge Assessment Hospital course: On admission, recommendations were reviewed for medication to treat generalized anxiety disorder, including propanolol, buspirone, or an SSRI antidepressant. The patient declined all medications, but expressed interest in following up with a therapist. Xanax was discontinued due to his overdose and the risk of worsening postconcussive symptoms. He was continued on his home dose of Zocor. The recommendations for treatment of postconcussive syndrome, brain rest and time, or reviewed with the patient. He did not feel that he had time to defecate to this, feeling pressured to return to his academics rapidly. His abnormal laboratory values were reviewed with him, specifically elevated hemoglobin, and the recommendation that he follow up with a PCP after discharge. He consistently denied suicidal thoughts throughout his stay, and minimized his suicide attempt, stating that he overdosed on Xanax 2 "reduce stress," although he had written and signed a suicide note which was found by police. Although the initial report indicated he had taken 7 Xanax, he later stated he had only taken 3. He denied postconcussive symptoms throughout his stay, and was eating and drinking appropriately. Sleep was fair, 4.5-6.5 hours a night. He denied feeling depressed, and although he admitted to anxiety, declined recommendations for medications, wanting to use behavioral interventions instead. He was able to work on mindfulness which she felt was helpful. His mother came from [place] and visited frequently. He declined offers for staff to contact student affairs at the [employer], stating that he did not want people to know what had happened. Day of discharge assessment: The patient states that he is "good, just an impulsive stupid decision." He minimizes his suicide attempt, stating "I was just overwhelmed, which shaken up from vomiting and staff. It was just one stupid mistake." He thinks school stress and his postconcussive symptoms were triggers. He is focused on discharge, wanting to know exactly what time he can leave the unit, stating he is anxious about missing school, and plans to return to classes tomorrow. He thinks the mindfulness techniques he worked on over the weekend were helpful, and states he is "learning how to cope, trying to just step back." He remains willing to follow-up with an outpatient therapist, but continues to decline medications or psychiatric follow-up, saying, I don't want to do that, I don't have depression or anxiety." We did review the symptoms of both depression and anxiety, and the recommendations to seek psychiatric care if these worsen, and he agreed. He denies suicidal thoughts, and would like to leave as soon as possible. His mother is here from [place], will be staying through the end of the week, and then he will be going home to [place] for spring. 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 He denies any recurrence of postconcussive symptoms, and is willing to follow-up with a PCP. Well nourished, well developed WM appearing stated age. Casually dressed and adequately groomed. Calm and cooperative. Seated in NAD, with fair eye contact and no abnormal movements. Speech is normal rate, volume, and tone. Mood is "fine," and affect is stable and mildly anxious. Thoughts are linear and goal directed, with some perseveration on discharge. The patient denied suicidal and homicidal ideation and was able to safety plan. No paranoia, delusions, or hallucinations, and did not appear to be responding to internal stimuli. Cognition was grossly intact. Alert and oriented to person, place and time. Intelligence is consistent with level of education. Insight and and judgment are fair. Superficial lacerations on left wrist were visualized. There are 5 lacerations that are superficial, scabbed over, and without signs of bleeding or infection. Laboratory Refer to printed laboratory reports Total Time Total Time Spent (min): Greater than 30 minutes Total Time Included: examination of the patient, discharge planning, medication reconciliation, communication with other providers Tobacco Cessation at Discharge FDA approved Prescription: non-smoker
== END 2016-04-09 15:05 | disposition home or self-care (01) | DRG 881 ==
LOC: C.EDA 17:31 → C.MHU 20:58
PROVIDERS: ADMIT Psychiatry & Neurology Psychiatry; ATTEND Psychiatry & Neurology Psychiatry
DX: F32.9 Major depressive disorder, single episode, unspecified (principal); R45.851 Suicidal ideations; E78.5 Hyperlipidemia, unspecified; F41.1 Generalized anxiety disorder; S61.512A Laceration without foreign body of left wrist, initial encounter; X78.9XXA Intentional self-harm by unspecified sharp object, initial encounter; T42.4X2A Poisoning by benzodiazepines, intentional self-harm, initial encounter; Y92.009 Unspecified place in unspecified non-institutional (private) residence as the place of occurrence of the external cause; E66.9 Obesity, unspecified; G47.33 Obstructive sleep apnea (adult) (pediatric); F07.81 Postconcussional syndrome; J98.01 Acute bronchospasm; R51 Headache; Z68.31 Body mass index [BMI] 31.0-31.9, adult; Z53.29 Procedure and treatment not carried out because of patient's decision for other reasons; Z79.899 Other long term (current) drug therapy